=== PATIENT | male | born 1995 | race Caucasian/White ===

== ENCOUNTER 2018-03-29 19:02 | Emergency (ER) | payer OTHER ==
[2018-03-29] MEDS ORDERED: RANITIDINE 50 MG/2 ML VIAL IVP ONE (19:20)
[2018-03-29] MEDS ORDERED: methylPREDNISolone SOD SUCC 125 MG/2 ML VIAL IVP ONE (19:20)
--- NOTE | 2018-03-29 19:21 | EDPHY ---
H & P Stated Complaint: allergic reation - Medical/Surgical History Hx Asthma: No Hx Chronic Respiratory Disease: No Hx Diabetes: No Hx Cardiac Disease: No Hx Renal Disease: No Hx Cirrhosis: No Hx Alcoholism: No Hx HIV/AIDS: No Hx Splenectomy or Spleen Trauma: No - Social History Smoking Status: Never smoked Time Seen by Provider: 03/29/18 19:09 HPI/ROS: CHIEF COMPLAINT: Allergic reaction HISTORY OF PRESENT ILLNESS: 22-year-old male in the ER via private vehicle. Patient has a known peanut allergy, carries EpiPen with him. He was at a alliance party , ate some food with sauce that likely contained peanuts. Approximately 10 min later he started to feel tingling and soft tissue swelling component intraorally. He self administered Benadryl, took 25 mg of Benadryl and was transported to the ER via private vehicle. States that he is feeling progressively improved since using his Benadryl and EpiPen. Currently denies: Chest pain, dyspnea, wheezing, abdominal pain, nausea, vomiting, diarrhea, rash. Patient has never been hospitalized or intubated secondary to allergic reaction. REVIEW OF SYSTEMS: A ten point review of systems was performed and is negative with the exception of the items mentioned in the HPI PAST MEDICAL & SURGICAL HISTORY: Known peanut allergy SOCIAL HISTORY: Nonsmoker PHYSICAL EXAM (Prior to examination, patient consented to physical exam, hands were washed and my usual and customary physical exam procedures followed) 1) GENERAL: Well-developed, well-nourished, alert and oriented. Appears anxious 2) HEAD: Normocephalic, atraumatic 3) HEENT: Pupils equal, round, reactive to light bilaterally. Sclera anicteric. Nasopharynx, oropharynx, clear, no lesions. No tonsillar or glossal enlargement. Ears bilaterally with normal tympanic membranes. 4) NECK: Full range of motion, no meningeal signs. 5) LUNGS: Clear auscultation bilaterally, no wheezes, no rhonchi, no retractions. 6) HEART: Regular rate and rhythm, no murmur, no heave, no gallop. 7) ABDOMEN: No guarding, no rebound, no focal tenderness, negative McBurney's, negative Marie's, negative Rovsing's, negative peritoneal sign, 8) MUSCULOSKELETAL: Moving all extremities, no focal areas of tenderness, no obvious trauma. No peripheral edema or discoloration. 9) BACK: No CVA tenderness, no midline vertebral tenderness, no fluctuance, no step-off, no obvious trauma, no visual or palpable abnormality. 10) SKIN: No rash, no petechiae. 11) Psychiatric: Patient is oriented X 3, there is no agitation. DIFFERENTIAL DIAGNOSIS: In no particular include but limited to anaphylaxis, urticaria, anxiety (Vasiliy Pichardo) Constitutional: Initial Vital Signs Temperature (C) 36.8 C 03/29/18 19:04 Heart Rate 96 03/29/18 19:04 Respiratory Rate 20 03/29/18 19:04 Blood Pressure 151/90 H 03/29/18 19:04 O2 Sat (%) 98 03/29/18 19:04 O2 Delivery Mode Room Air Allergies/Adverse Reactions: peanut [Peanut] Allergy (Severe, Verified 03/29/18 19:04) Home Medications: Medication Instructions Recorded Epi-Pen 09/13/09 EPINEPHrine [Epipen 0.3 MG] 0.3 mg IM ONCE #2 syr 03/29/18 predniSONE [prednisone 20mg (RX)] 20 mg PO Q12 4 Days tab 03/29/18 Medical Decision Making ED Course/Re-evaluation: 7:20 p.m.: I have evaluated the patient, he has already taken pre-hospital EpiPen. He will be given further dose of Benadryl, he will be given dose of Zantac, Solu-Medrol, IV fluids and observed for a period of time in the ER. Currently states that he is feeling progressive improvement. The patient lives in [place] approximately 1 mi away from the hospital and is here with his father. I believe them both to have decision-making capacity at this time. I saw this patient independently based on established practice protocols. Care of patient under supervision of secondary supervising physician Dr Xavier. 8:30 p.m.: Patient observed in the ER for period of time. He continues to appear well. Re-examined at this time. He smiling, lungs are clear bilaterally , asymptomatic. Plan will be discharge home with usual and customary allergy precautions and instructions. (Vasiliy Pichardo) Other Provider: PHYSICIAN DOCUMENTATION: The patient was evaluated and managed by the Physician Administration Assistant and myself. I have reviewed the chart and agree with the findings and plan of care as documented. In addition, I examined the patient myself at 1935. History confirmed as unintentional peanut exposure at a alliance party with peanut dipping sauce near his chicken. Physical findings as follows: Patient has normal voice now, still has a little bit of uvular edema, tongue is normal, no stridor. He still has 1 EpiPen in the car. Plan to treat with antihistamines and steroids, observation, discharge with outpatient follow-up. He needs a new primary care physician is last . 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 2030: Re-evaluated, still improving, clinically stable, ready for discharge. I am the secondary supervising physician. (Star Xavier) - Data Points Medications Given: Discontinued Medications Diphenhydramine HCl (Benadryl Injection) 50 mg IVP EDNOW ONE Stop: 03/29/18 19:21 Last Admin: 03/29/18 19:23 Dose: Not Given Diphenhydramine HCl (Benadryl Injection) 25 mg IVP EDNOW ONE Stop: 03/29/18 19:23 Last Admin: 03/29/18 19:23 Dose: 25 mg Methylprednisolone Sodium Succinate (Solu-Medrol) 125 mg IVP EDNOW ONE Stop: 03/29/18 19:21 Last Admin: 03/29/18 19:21 Dose: 125 mg Ranitidine HCl (Zantac) 50 mg IVP EDNOW ONE Stop: 03/29/18 19:21 Last Admin: 03/29/18 19:21 Dose: 50 mg Departure - Departure Disposition: Home, Routine, Self-Care Clinical Impression: Peanut-induced anaphylaxis Qualifiers: Encounter type: initial encounter Qualified Code(s): T78.01XA - Anaphylactic reaction due to peanuts, initial encounter Condition: Good Instructions: Peanut Allergy (ED) Additional Instructions: If you develop shortness of breath, tongue swelling or any other symptoms use your EpiPen immediately and return to the ER. All was keep your EpiPen in easily accessible place. Avoid peanut containing products. Referrals: Stephanie Zuluaga MD [[facility] [place]] - 5-7 days, call for appt. Prescriptions: EPINEPHrine [Epipen 0.3 MG] 0.3 mg IM ONCE #2 syr predniSONE [prednisone 20mg (RX)] 20 mg PO Q12 4 Days tab
[2018-03-29 20:38] VITALS: BP 140/71
== END 2018-03-29 20:37 | disposition home or self-care (01) ==
DX: T78.01XA Anaphylactic reaction due to peanuts, initial encounter (principal)
CPT/HCPCS: 96374; J1200; J2780; J2930